=== PATIENT | male | born 1980 | race Caucasian/White ===

== ENCOUNTER 2023-03-22 08:50 | Outpatient (CLI) | payer OTHER, SELFPAY | END 2023-03-22 08:51 | disposition home or self-care (01) | LOC: LKVREF 08:51 | PROVIDERS: PCP Physician Assistant Medical; Visit Provider Physician Assistant Medical | DX: Z00.00 Encounter for general adult medical examination without abnormal findings (principal); R73.03 Prediabetes; I10 Essential (primary) hypertension; Z13.0 Encounter for screening for diseases of the blood and blood-forming organs and certain disorders involving the immune mechanism | CPT/HCPCS: 80053; 80061; 82043; 82570; 83695 ==

== ENCOUNTER 2024-08-27 08:36 | Outpatient (CLI) | payer OTHER, SELFPAY | END 2024-08-27 08:37 | disposition home or self-care (01) | LOC: NFLDREF 08-29 13:16 | PROVIDERS: PCP Physician Assistant Medical; Referring Provider Physician Assistant Medical; Visit Provider Physician Assistant Medical | DX: Z00.00 Encounter for general adult medical examination without abnormal findings (principal); E78.41 Elevated Lipoprotein(a); E78.5 Hyperlipidemia, unspecified; R73.03 Prediabetes; Z11.4 Encounter for screening for human immunodeficiency virus [HIV]; Z11.59 Encounter for screening for other viral diseases | CPT/HCPCS: 80053; 80061; 82043; 82570; 83695; 84443; 86703; 86803 ==